=== PATIENT | female | born 1960 | race African-American/Black ===

== ENCOUNTER 2024-01-13 00:48 | Emergency (ER) | payer MEDICAID, OTHER ==
[~2024-01-13] VITALS: Ht 165.1 cm; Wt 75.0 kg
[2024-01-13 00:55] VITALS: BP 153/102; PULSE 110; RESP 16; TEMP 98.1; O2SAT 100
[2024-01-13] MEDS: SULFAMETHOXAZOLE/TRIMETHOPRIM 800/160MG TABLET PO NR (04:15)
[2024-01-13] MEDS ORDERED: SULF1TAB48 MT (04:22)
== END 2024-01-13 05:05 | disposition home or self-care (01) ==
LOC: ER 00:48
DX: R21 Rash and other nonspecific skin eruption (principal); E11.9 Type 2 diabetes mellitus without complications; I10 Essential (primary) hypertension; Z88.0 Allergy status to penicillin
CPT/HCPCS: 99283